=== PATIENT | male | born 1985 | race Caucasian/White ===

== ENCOUNTER 2024-07-01 14:10 | Outpatient (AMB) | payer OTHER, SELFPAY ==
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
[2024-07-01 14:25] VITALS: BP 142/86; PULSE 93; RESP 14; TEMP 35.8; O2SAT 97; BMI 31.7
== END 2024-07-01 15:57 | disposition home or self-care (01) ==
PROVIDERS: PCP Family Medicine; Visit Provider Family Medicine
DX: M54.9 Dorsalgia, unspecified (principal); M25.531 Pain in right wrist; Z00.00 Encounter for general adult medical examination without abnormal findings

== ENCOUNTER → 2024-07-01 14:10 | Outpatient (BNVA) | payer OTHER, SELFPAY | PROVIDERS: Visit Provider Family Medicine | DX: M54.50 Low back pain, unspecified (principal); M25.531 Pain in right wrist | CPT/HCPCS: 96127 ==

== ENCOUNTER 2025-05-27 11:27 | Outpatient (REF) | payer OTHER, SELFPAY ==
[2025-05-27 14:29] LABS: Appearance Urine Cloudy; Glucose Urine UA Negative (Negative); PH 7.5 (5.0-9.0); Specific Gravity - Urine 1.015 (1.005-1.025)
[2025-05-27 14:30] LABS: MANUAL DIFF FLAG NO
[2025-05-27 14:37] LABS: Hematocrit 45.9 % (42.0-52.0); Hemoglobin 16.1 g/dl (14.0-18.0); Imm Gran Abs Auto 0.04 X10*3/uL (0.00-0.03); Imm Gran Pct Auto 0.6 % (0.0-0.4); Lymphocytes Absolute Auto 2.8 X10*3/uL (1.2-4.9); Mean Corpuscular HGB Conc 35.1 g/dl (31.0-36.0); Mean Corpuscular Hemoglobin 31.1 pg (27.0-33.0); Mean Corpuscular Volume 88.8 fL (80.0-98.0); NRBC Abs Auto 0.000 X10*3/uL (0.0-0.012); NRBC Pct Auto 0.0 /100WBC (0.0-0.2); Platelet Count 257 X10*3/uL (160-400); Red Blood Count 5.17 X10*6/uL (4.60-5.80); White Blood Count 6.3 X10*3/uL (4.8-10.8)
[2025-05-27 15:33] LABS: Microalbum/Creatinine Ratio Ur 9.0 ug/mg cr (<30)
[2025-05-27 15:42] LABS: Alanine Aminotransferase 66 U/L (0-40); Albumin Level 4.7 g/dL (3.5-5.0); Alkaline Phosphatase 51 U/L (39-117); Anion Gap 14 (12-20); Aspartate Amino Transferase 43 U/L (5-37); Blood Urea Nitrogen 15 mg/dL (9-16); Calcium 9.4 mg/dL (8.4-10.2); Carbon Dioxide 23 mmol/L (22-29); Chloride 106 mmol/L (96-108); Cholesterol 219 mg/dL (<200); Estimated Glomerular Filt Rate > 60; HDL Cholesterol 49 mg/dL (>40); Potassium 4.3 mmol/L (3.3-5.1); Sodium 139 mmol/L (135-145); Total Protein 7.5 g/dL (6.5-8.0); Triglycerides 180 mg/dL (<150)
== END 2025-05-27 11:28 | disposition home or self-care (01) ==
LOC: HO.HMGCLDS 11:27
PROVIDERS: PCP Family Medicine; Visit Provider Family Medicine
DX: Z00.00 Encounter for general adult medical examination without abnormal findings (principal); Z12.5 Encounter for screening for malignant neoplasm of prostate; I10 Essential (primary) hypertension
CPT/HCPCS: 36415; 80053; 80061; 81003; 82043; 82570; 84153; 84443; 85025

== ENCOUNTER 2025-06-05 09:47 | Outpatient (AMB) | payer OTHER, SELFPAY ==
--- NOTE | 2025-06-05 10:05 | MHC.PC.OV ---
Vital Signs 06/05/25 10:10 Height 5 ft 10 in Weight 238 lb 6 oz BMI 34.2 BP 114/80 Blood Pressure Location Rt brachial Position Sitting Pulse 88 Pulse Source Pulse Oximeter Temp 98.5 F Temp Source Temporal Artery Scan Pulse Oximetry (%) 97 Oxygen Delivery Method Room Air Intake Visit Reasons: CPE Intake Note: Scooby presents in the office today for his annual physical. Grinder And Plater Required: No Allergies No Known Allergies Allergy (Verified 06/05/25 10:09) Medication List - Last Reconciled 06/05/25 by Konrad Brewer MD meloxicam 15 mg PO DAILY 30 days Tobacco use date assessed: 06/05/25 Dental Screening Dental Screen Date: 06/05/25 Did you have a dental visit in the last 12 months?: No Did you have a dental problem in the last 6 months where you did not have access to dental care?: No Was dental information given to patient?: Patient declined HPI CPE HPI Details 39 y/o male presents for a CPE with f/u labs and health maint. Labs drawn 05/27/25. Reviewed labs with pt. Elevated liver enzymes - AST 43, ALT 66. Triglycerides 180. TC 219. LDL 134. HDL 49. Reports hearing changes. Pt notes he tries to eat a healthy diet. Ongoing complaints of carpal tunnel/wrist pain. HPI Comments History of Present Illness Details Documentation assistance for Konrad Brewer MD, was provided by León Schafer,? Medical Technologist Microbiology on 06/05/2025 at 10:43 AM EST. I, Dr. Brewer, have read, observed, and verified documentation. ? PFSH Medical History (Updated 06/05/25 @ 10:43 by León Schafer) History of back problems Opioid abuse Surgical History (Updated 07/01/24 @ 14:24 by Mary Adame MA) History of ankle surgery H/O knee surgery Family History Mother Substance abuse Paternal Grandmother Hypertension Cardiovascular disease Social History (Updated 06/05/25 @ 10:10 by Roxane Arshad CMA) Household Members: Spouse Both parents involved: No Caregiver staying overnight: No Housing: Apartment Are you a primary before and after school daycare worker to a significant other at home: No Do you presently have visiting nurse or other home services: No 75 years or older and lives alone: No Alcohol intake: current Alcohol intake frequency: a few times a month Tobacco use type: Smokeless Tobacco e-Cigarette/Vaping Use: Never Used Second Hand Smoke Exposure: No Current occupational status: employed Current occupation: [employer] Cognitive needs: No Hearing needs: No Vision needs: Yes (wear glasses) Questionnaire PHQ-9 Over the last 2 weeks, how often have you been bothered by any of the following problems? 1. Little interest or pleasure in doing things: not at all 2. Feeling down, depressed, or hopeless: not at all 3. Trouble falling or staying asleep, or sleeping too much: not at all 4. Feeling tired or having little energy: not at all 5. Poor appetite or overeating: not at all 6. Feeling bad about yourself - or that you are a failure or have let yourself or your family down: not at all 7. Trouble concentrating on things, such as reading the newspaper or watching television: not at all 8. Moving or speaking so slowly that other people could have noticed. Or the opposite - being so fidgety or restless that you have been moving around a lot more than usual: not at all 9. Thoughts that you would be better off or of hurting yourself in some way: not at all Total score: 0 Depression Screening Interpretation: Negative Depression Screening Done: Yes 67933 - PHQ-9 Billing: Yes Source: Developed by Drs. Jesus Terrell, Amanda Montemayor, Guero Hale and colleagues, with an educational tom from [employer]. Thrive Questionnaire Date Thrive assessed: 06/05/25 I am a: Patient What is your living situation today?: I have a steady place to live Within the past 12 months, did the food you bought not last and you didn't have the money to get more?: Never true Within the past 12 months, did you worry whether your food would run out before you got money to buy more?: Never true Do you have trouble paying for medicines?: No Do you have trouble getting transportation to medical appointments?: No Do you have trouble paying your heating and electricity bill?: No Do you have trouble taking care of your child, family member or friend?: No Do you have trouble with day-to-day activities such as bathing, preparing meals, shopping, managing finances, etc.?: No Are you currently unemployed and looking for a job?: No Are you interested in more education?: No Currently or been in a relationship where the following occur: No concerns reported THRIVE Score: 0 AUDIT C Alcohol Use Questionnaire (AUDIT-C) 1. How often do you have a drink containing alcohol?: Never 3. How often do you have six or more drinks on one occasion?: Never Total Score: 0 EVANGELIST-7 AMB Questionnaire EVANGELIST-7 Date EVANGELIST - 7 assessed: 06/05/25 Feeling nervous, anxious, or on edge: 0 = Not at all Not being able to stop or control worryin = Not at all Worrying too much about different things: 0 = Not at all Trouble relaxin = Not at all Being so restless that it is hard to sit still: 0 = Not at all Becoming easily annoyed or irritable: 0 = Not at all Feeling afraid as if something awful might happen: 0 = Not at all Total EVANGELIST-7 score (0-4 normal; 5-9 mild; 10-14 moderate; 15-21 severe): 0 Source: Developed by Drs. Jesus Terrell, Amanda Montemayor, Guero Hale and colleagues, with an educational tom from [employer]. EVANGELIST-7 Assessment Billing EVANGELIST-7 Assessment Tool: EVANGELIST-7 Assessment 97828 Review of Systems Const Denies chills, Denies fatigue, Denies fever(s), Denies headache(s) and Denies weakness Eyes Denies change in vision ENT Denies dizziness, Denies headache(s), Denies hearing loss, Denies nasal congestion, Denies sinus pain, Denies sinus pressure and Denies sore throat Card Denies chest pain, Denies lightheadedness, Denies dyspnea and Denies other (palpitations) Resp Denies cough, Denies dyspnea and Denies wheezing GI Denies abdominal pain, Denies melena, Denies hematochezia, Denies change in bowel habits, Denies dyspepsia and Denies nausea Denies hematuria and Denies dysuria Musc Denies abnormal gait, Denies myalgias, Denies arthralgias, Denies numbness and Denies tingling Skin/Breast Denies rash, Denies unusual bruising and Denies wounds Neuro Denies abnormal gait, Denies dizziness, Denies headache(s), Denies memory loss, Denies numbness, Denies Sensory deficit (Neuro), Denies tingling and Denies weakness Psych Denies anxiety, Denies depression and Denies memory loss Endo Denies cold intolerance, Denies fatigue, Denies heat intolerance, Denies polydipsia and Denies polyuria Marcelino/Lymph Denies easy bleeding and Denies easy bruising Aller/Immun Denies wheezing Physical exam (Primary Care) Vital Signs: Last Vital Signs Temp 98.5 F 06/05/25 10:10 Pulse 88 06/05/25 10:10 BP 114/80 06/05/25 10:10 Pulse Ox 97 06/05/25 10:10 Oxygen Delivery Method Room Air 06/05/25 10:10 BMI result Body Mass Index 34.2 Tobacco/Smoking Status: Tobacco use Status Tobacco use date assessed 06/05/25 06/05/25 10:13 Patient Tobacco Use Status 06/05/25 10:10 Tobacco use type Smokeless Tobacco 06/05/25 10:10 e-Cigarette/Vaping Use Never Used 06/05/25 10:10 PHQ-9: PHQ-9 Score PHQ-9: Total score 0 06/05/25 10:15 Depression Screening Interpretation: Negative Thrive Assessment: Date of Thrive Assessment Date Thrive assessed 06/05/25 06/05/25 10:15 Currently or been in a relationship where the following occur: No concerns reported Const General: no acute distress, well developed, alert and awake Nutritional Appearance: well nourished Orientation/consciousness: patient oriented x3 HENMT Head: Yes normocephalic and Yes atraumatic Ears: hearing grossly normal bilaterally and TM's normal bilaterally General nose exam: Normal external nose present and Normal nares present Mouth: Normal oral and palatal mucosa present and moist mucous membranes Teeth and gingiva: dentition normal Throat: Yes posterior oropharynx normal Eyes General: appearance normal, both eyes and all related structures Pupils: Equal, round and reactive pupils present and Pupil accommodation reflex normal EOM: EOMs intact bilaterally Neck Neck: Yes normal visual inspection, Yes no lymphadenopathy and Yes trachea midline Thyroid: Thyroid normal Carotids: no bruits Lymphatic: no lymphadenopathy noted Chest Chest palpation & inspection: normal inspection of the chest Resp Effort & Inspection: normal respiratory effort Auscultation: clear to auscultation bilaterally Cardio Rate: regular rate Rhythm: regular rhythm Heart sounds: S1 normal heart sound present, S2 normal heart sound present, no gallops, no murmurs and no rubs Bruits: no abdominal aortic bruits and no carotid bruits GI Palpation (GI): No Abdominal aortic bruit present, Soft to palpation, nontender, No hepatosplenomegaly present and No Rebound tenderness present Auscultation: normal bowel sounds General: Yes no CVA tenderness Back/Spine/Pelvis Back: no CVA tenderness Cervical Spine: cervical ROM normal and No Cervical spine tenderness Thoracic/Lumbar Spine: thoraco-lumbar ROM normal, No pain with thoraco-lumbar ROM, No thoracic spinal tenderness and No lumbar spinal tenderness Skin Lesions: no lesions Rashes: no rashes Trauma: no lacerations or abrasions Wounds: no wounds Nails: normal Neuro General: patient oriented x3 Cranial nerves: Yes Equal, round and reactive pupils present Cognition (Neuro): normal cognition Gait exam (Neuro): Normal gait present Motor exam (neuro): 5/5 motor strength present throughout Sensory Exam: No Sensory deficit (Neuro) Deep tendon reflexes (DTR's): Right patellar reflex intensity grade: 2+ and Left patellar reflex intensity grade: 2+ Extrem General: Yes normal to inspection and No edema Psych Appearance: grossly normal Affect: normal affect Attitude: cooperative Thought process: Normal thought process present Coding Level of Care Code Est Pt Level 3 (91924) Est Pt Prev Care 40-64y(95750) Diagnoses Adult general medical exam Z00.00 Change in hearing H91.90 Elevated liver enzymes R74.8 Right wrist pain M25.531 Hypercholesteremia E78.00 Screening for prostate cancer Z12.5 Additional Codes EVANGELIST-7 Assessment Billing - EVANGELIST-7 Assessment Tool: EVANGELIST-7 Assessment 05701 ([id number]) PHQ-9 - 44277 - PHQ-9 Billing: Yes ([id number]) Assessment & Plan Assessment & Plan (1) Adult general medical exam: Code(s): Z00.00 - Encounter for general adult medical examination without abnormal findings Category: Medical Plan: 39-year-old male presents for complete physical exam Encouraged healthy diet with active lifestyle and plenty of exercise (2) Change in hearing: Code(s): H91.90 - Unspecified hearing loss, unspecified ear Category: Medical Plan: Patient notes change in hearing with tinnitus Referred to audiology (3) Elevated liver enzymes: Code(s): R74.8 - Abnormal levels of other serum enzymes Category: Medical Plan: Elevated liver enzymes. Patient has gained about 17 lb since his last visit in June Encouraged good hydration, weight loss and we will recheck liver enzymes with next blood drawn about 3 months. If still the same or higher, will get an ultrasound (4) Right wrist pain: Code(s): M25.531 - Pain in right wrist Category: Medical Plan: Right wrist pain swelling and bilateral hand tingling and numbness which has worsened. He is using wrist braces at night Referred to hand surgery (5) Hypercholesteremia: Code(s): E78.00 - Pure hypercholesterolemia, unspecified Category: Medical Plan: LDL cholesterol is too high Work on a diet low in saturated fats and cholesterol Will recheck in 3 months. We discussed that if lipids are still significantly elevated we should consider medication (6) Screening for prostate cancer: Code(s): Z12.5 - Encounter for screening for malignant neoplasm of prostate Category: Medical Plan: PSA was within normal range Continue annual screening Orders: Orders Lipid Panel Today E78.00 - Pure hypercholesterolemia, unspecified, Z00.00 - Encounter for general adult medical examination without abnormal findings Comprehensive [place]. Panel Fast Today R74.8 - Abnormal levels of other serum enzymes, Z00.00 - Encounter for general adult medical examination without abnormal findings Referrals Audiology Referral H91.90 - Unspecified hearing loss, unspecified ear Hand Surgery Referral M25.531 - Pain in right wrist, R20.0 - Anesthesia of skin
[2025-06-05 10:10] VITALS: BP 114/80; PULSE 88; TEMP 36.9; O2SAT 97; BMI 34.2
== END 2025-06-05 10:53 | disposition home or self-care (01) ==
LOC: HO.HMCFM 09:48
PROVIDERS: PCP Family Medicine; Visit Provider Family Medicine
DX: Z00.00 Encounter for general adult medical examination without abnormal findings (principal); H91.90 Unspecified hearing loss, unspecified ear; E78.00 Pure hypercholesterolemia, unspecified; R74.01 Elevation of levels of liver transaminase levels; M25.531 Pain in right wrist; R20.0 Anesthesia of skin; Z12.5 Encounter for screening for malignant neoplasm of prostate

== ENCOUNTER → 2025-06-05 09:47 | Outpatient (BNVA) | payer OTHER, SELFPAY | PROVIDERS: PCP Family Medicine; Visit Provider Family Medicine | DX: Z00.00 Encounter for general adult medical examination without abnormal findings (principal); Z12.5 Encounter for screening for malignant neoplasm of prostate; H91.90 Unspecified hearing loss, unspecified ear; R74.8 Abnormal levels of other serum enzymes; M25.531 Pain in right wrist; E78.00 Pure hypercholesterolemia, unspecified | CPT/HCPCS: 96127 ==